=== PATIENT | female | born 1975 | race African-American/Black ===

== ENCOUNTER 2016-11-29 18:28 | Emergency (ER) | payer OTHER ==
[~2016-11-29] VITALS: Ht 165.1 cm; Wt 72.0 kg
[~2016-11-29 18:28] MED LIST: DILA100C PO; LEVE250 PO; TOPA100T8 PO
[2016-11-29 18:29] VITALS: BP 143/72; PULSE 78; RESP 14; TEMP 98.4; O2SAT 99
[2016-11-29] MEDS ORDERED: TOPA25TA8 PO (18:42)
[2016-11-29] MEDS ORDERED: LEVE10003 PO (18:42)
[2016-11-29] MEDS ORDERED: DILA100C PO (18:42)
--- NOTE | 2016-11-29 19:14 | RADRPT ---
EXAM DATE/TIME: 11/29/2016 18:58 [facility] COMPARISON: CHEST SINGLE AP, November 28, 2014, 20:30. INDICATIONS : Right side chest and breast pain. MEDICAL HISTORY : Stroke. Hypertension. Seizures. SURGICAL HISTORY : Tubal ligation. ENCOUNTER: Initial ACUITY: 3 days PAIN SCORE: 8/10 LOCATION: Bilateral chest FINDINGS: There is elevation of the right hemidiaphragm. Left lung is clear. Heart and pulmonary vascularity are normal. Portion of bony skeleton visualized is unremarkable. CONCLUSION: Negative chest for acute disease. Nathanael Beltre MD FACR on November 29, 2016 at 19:06 Board Certified Radiologist. This report was verified electronically.
[2016-11-29 19:16] LABS: AUTOMATED NEUTROPHIL # 2.8 TH/MM3 (1.8-7.7); BASOPHIL % 0.3 % (0.0-2.0); EOSINOPHIL % 0.6 % (0.0-4.0); HEMATOCRIT 40.1 % (35.0-46.0); HEMO FLAGS DIFF FINAL; LYMPH % 32.6 % (9.0-44.0); LYMPHOCYTE # 1.5 TH/MM3 (1.0-4.8); MEAN CELL VOLUME 78.9 FL (80.0-100.0); MEAN CORPUSCULAR HEMOGLOBIN 25.3 PG (27.0-34.0); MONO % 7.7 % (0.0-8.0); NEUT % 58.8 % (16.0-70.0); PLATELET COUNT 163 TH/MM3 (150-450); RED BLOOD COUNT 5.08 MIL/MM3 (4.00-5.30); WHITE BLOOD COUNT 4.7 TH/MM3 (4.0-11.0)
[2016-11-29 19:33] LABS: ANION GAP 9 MEQ/L (5-15); BICARBONATE 23.5 MEQ/L (21.0-32.0); BLOOD UREA NITROGEN 8 MG/DL (7-18); CHLORIDE 106 MEQ/L (98-107); GLOMERULAR FILTRATION RATE 117 ML/MIN (>89); POTASSIUM 3.9 MEQ/L (3.5-5.1); SODIUM (NA) 138 MEQ/L (136-145)
[2016-11-29 19:37] LABS: CREATINE KINASE 133 U/L (26-192)
[2016-11-29 19:50] LABS: CKMB 0.9 NG/ML (0.5-3.6)
[2016-11-29] MEDS ORDERED: IOHEXOL 350 MG/ML 10 ML VIAL (for RAD DIAG) IV ONE (20:09)
--- NOTE | 2016-11-29 20:22 | RADRPT ---
EXAM DATE/TIME: 11/29/2016 20:10 [facility] COMPARISON: CT PULMONARY ANGIOGRAM, October 22, 2012, 21:06. INDICATIONS : Right-sided chest pain for two days. IV CONTRAST: 74 cc Omnipaque 350 (iohexol) IV RADIATION DOSE: 23.24 CTDIvol (mGy) MEDICAL HISTORY : Stroke. Hypertension. sinus neoplasm SURGICAL HISTORY : Tubal ligation. sinus surgery ENCOUNTER: Initial ACUITY: 2 days PAIN SCALE: 8/10 LOCATION: Right chest TECHNIQUE: Volumetric scanning of the chest was performed using a pulmonary embolism protocol MIP images were reconstructed. Using automated exposure control and adjustment of the mA and/or kV acco rding to patient size, radiation dose was kept as low as reasonably achievable to obtain optimal diag nostic quality images. FINDINGS: There are minimal parenchymal changes laterally in the right lung, improved from the comparison study . There is no axillary adenopathy. There is no mediastinal adenopathy. There is no evidence for central pulmonary emboli. There is no pericardial effusion. Gallstones are present in the gallbladder. CONCLUSION: There is no evidence for central pulmonary emboli. Nathanael Beltre MD FACR on November 29, 2016 at 20:19 Board Certified Radiologist. This report was verified electronically.
[2016-11-29] MEDS ORDERED: ACETAMINOPHEN/HYDROcodone 325 MG/5 MG TAB PO ONE (20:30)
--- NOTE | 2016-11-29 20:30 | PD ---
HPI Chief Complaint: Chest Pain Time Seen by Provider: 20:26 Travel History International Travel<30 days: No Contact w/Intl Traveler<30days: No Traveled to known affect area: No History of Present Illness HPI 40-year-old female that presents to the ED for evaluation of right-sided chest pain. Per patient she's had this for the past 24 hours. Per patient taking deep breaths and moving makes it worse. Otherwise she has no discomfort is much. Per patient the pain is not severe but enough for her to be bothered. She does have a history of pulmonary embolism history of cancer in the past that she got concerned she wants to make sure this is nothing acute. She does tolerate she's been sneezing a lot as well as with some mild cough. She states that the pain is 6 out of 10. Denies any left-sided chest pain. Pain does not radiate. Denies any shortness of breath. No allergies to medication. Has not taken anything for this. Hasn't seen anybody for this. No recent travel. No recent surgeries. Takes no control. No allergies to medication. 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) Cerebrovascular Accident: Yes (seizure) Diminished Hearing: No Headaches: Yes Hypertension: Yes Implanted Vascular Access Dvce: No Musculoskeletal: Yes Neurologic: Yes Respiratory: Yes (PNA) Immunizations Current: Yes Migraines: Yes Radiation Therapy: Yes (SINUS) Seizures: Yes ?: Not LMP: 10/27/16 : 5 Para: 5 Tubal Ligation: Yes Past Surgical History Other Surgery: Yes (two sinus surgeries 2010/ radiation nasal poly) Family History Family Myocardial Infarction: No Social History Alcohol Use: No Tobacco Use: No Substance Use: No Allergies-Medications (Allergen,Severity, Reaction): Coded Allergies: No Known Allergies (Verified , 02/22/16) Reported Meds & Prescriptions Reported Meds & Active Scripts Active Reported Topamax (Topiramate) 25 Mg Tab 100 Mg PO BID Dilantin (Phenytoin Extended) 100 Mg Cap 100 Mg PO TID Levetiracetam 1,000 Mg Tab 1,000 Mg PO BID Review of Systems Except as stated in HPI: all other systems reviewed are Neg Physical Exam Narrative GENERAL: SKIN: Warm and dry. HEAD: Atraumatic. Normocephalic. EYES: Pupils equal and round. No scleral icterus. No injection or drainage. ENT: No nasal bleeding or discharge. Mucous membranes pink and moist. Tongue is midline. No uvula deviation. NECK: Trachea midline. No JVD. CARDIOVASCULAR: Regular rate and rhythm. No murmurs, S3, S4. Some of the pain in the right chest is reproducible with touch as well as with deep breaths. RESPIRATORY: No accessory muscle use. Clear to auscultation. Breath sounds equal bilaterally. GASTROINTESTINAL: Abdomen soft, non-tender, nondistended. Hepatic and splenic margins not palpable. MUSCULOSKELETAL: Extremities without clubbing, cyanosis, or edema. No obvious deformities. Full range of motion of the upper and lower extremities bilaterally. 2+ pulses bilaterally. NEUROLOGICAL: Awake and alert. No obvious cranial nerve deficits. Motor grossly within normal limits. Five out of 5 muscle strength in the arms and legs. Normal speech. PSYCHIATRIC: Appropriate mood and affect; insight and judgment normal. Data Data Last Documented VS Vital Signs Date Time Temp Pulse Resp B/P Pulse Ox O2 Delivery O2 Flow Rate FiO2 11/29/16 18:37 17 Room Air 11/29/16 18:29 98.4 78 143/72 99 Orders Electrocardiogram (11/29/16 ) Complete Blood Count With Diff (11/29/16 18:47) Basic Metabolic Panel (Bmp) (11/29/16 18:47) Ckmb (Isoenzyme) Profile (11/29/16 18:47) Troponin I (11/29/16 18:47) Chest, Single Ap (11/29/16 18:47) Ed Urine Pregnancytest Poc (11/29/16 18:47) D-Dimer (11/29/16 18:51) CKMB (11/29/16 18:55) CKMB% (11/29/16 18:55) Ct Pulmonary Angiogram (11/29/16 19:46) Iohexol 350 Inj (Omnipaque 350 Inj) (11/29/16 20:09) Acetamin-Hydrocod 325-5 Mg ([place] 5-325 (11/29/16 20:30) Labs Laboratory Tests Test 11/29/16 18:55 White Blood Count 4.7 TH/MM3 Red Blood Count 5.08 MIL/MM3 Hemoglobin 12.8 GM/DL Hematocrit 40.1 % Mean Corpuscular Volume 78.9 FL Mean Corpuscular Hemoglobin 25.3 PG Mean Corpuscular Hemoglobin 32.0 % Concent Red Cell Distribution Width 16.0 % Platelet Count 163 TH/MM3 Mean Platelet Volume 9.0 FL Neutrophils (%) (Auto) 58.8 % Lymphocytes (%) (Auto) 32.6 % Monocytes (%) (Auto) 7.7 % Eosinophils (%) (Auto) 0.6 % Basophils (%) (Auto) 0.3 % Neutrophils # (Auto) 2.8 TH/MM3 Lymphocytes # (Auto) 1.5 TH/MM3 Monocytes # (Auto) 0.4 TH/MM3 Eosinophils # (Auto) 0.0 TH/MM3 Basophils # (Auto) 0.0 TH/MM3 CBC Comment DIFF FINAL Differential Comment D-Dimer Quantitative (PE/DVT) 0.57 MG/L FEU Sodium Level 138 MEQ/L Potassium Level 3.9 MEQ/L Chloride Level 106 MEQ/L Carbon Dioxide Level 23.5 MEQ/L Anion Gap 9 MEQ/L Blood Urea Nitrogen 8 MG/DL Creatinine 0.67 MG/DL Estimat Glomerular Filtration 117 ML/MIN Rate Random Glucose 92 MG/DL Calcium Level 8.6 MG/DL Total Creatine Kinase 133 U/L Creatine Kinase MB 0.9 NG/ML Troponin I LESS THAN 0.02 NG/ML MDM Medical Decision Making Medical Screen Exam Complete: Yes Emergency Medical Condition: Yes Medical Record Reviewed: Yes Interpretation(s) CBC & BMP Diagram 11/29/16 18:55 EKG shows sinus rhythm with no sign of acute ischemia or arrhythmia read by me and attending. Troponin and CK-MB negative. D-dimer of 0.59 Chest x-ray for acute disease. CT negative for acute disease. Differential Diagnosis Chest pain versus PE versus pleurisy versus a typical chest pain Narrative Course 40-year-old female that presents to the ED for evaluation of right-sided chest pain. Patient was properly examined and was found to have signs and symptoms consistent with a typical chest pain. Patient does have a history of pulmonary embolism and cancer in the past. Case was discussed in my attending Dr Trivedi who recommends be done at least be ordered. Labs and imaging chem positive for d-dimer positive. CT was ordered. CT was negative. Patient was reassured. From history and physical this is likely pleurisy. Patient will be given a prescription for diclofenac sodium to use for pain. Told to take antihistamines related reaction. Follow with PCP. See ED worsening symptoms. Diagnosis Primary Impression: Pleurisy Patient Instructions: General Instructions, Narcotic given in the ED Additional Instructions: Take medications as prescribed. Follow with PCP. See ED for any worsening symptoms. You can take antihistamines to help with the allergies. Med/Other Pt SpecificInfo: Prescription(s) given Disposition: 01 DISCHARGE HOME Condition: Stable Rich Dalton November 29, 2016 20:30
[2016-11-29] MEDS ORDERED: DICL75TA PO (20:35)
--- NOTE | 2016-11-30 16:12 | EKG ---
Date Performed: 11/29/2016 Time Performed: 18:43:30 PTAGE: 40 years EKG: SINUS BRADYCARDIA WITH SINUS ARRHYTHMIA BORDERLINE LEFT AXIS DEVIATION VOLTAGE CRITERIA FOR LVH When compared to previous tracing, no significant change. ABNORMAL ECG PREVIOUS TRACING : 07/15/2015 00.15 DOCTOR: Adi German Interpretating Date/Time 11/30/2016 16:12:07
== END 2016-11-29 20:51 | disposition home or self-care (01) ==
LOC: NEPE 18:28
DX: R09.1 Pleurisy (principal); R05 Cough; R06.7 Sneezing; R94.31 Abnormal electrocardiogram [ECG] [EKG]; I10 Essential (primary) hypertension; Z87.39 Personal history of other diseases of the musculoskeletal system and connective tissue; Z86.79 Personal history of other diseases of the circulatory system; Z86.69 Personal history of other diseases of the nervous system and sense organs; Z86.711 Personal history of pulmonary embolism
CPT/HCPCS: 71010; 71275; 80048; 82550; 82552; 84484; 84703; 85025; 85379; 93005; 99285; Q9967

== ENCOUNTER 2017-01-16 08:23 | Emergency (ER) | payer OTHER ==
[~2017-01-16] VITALS: Ht 162.6 cm; Wt 69.1 kg
[~2017-01-16 08:23] MED LIST changes: +DICL75TA PO; +LEVE10003 PO; -LEVE250 PO; -TOPA100T8 PO; +TOPA25TA8 PO
[2017-01-16 08:26] VITALS: BP 173/87; PULSE 51; RESP 20; TEMP 97.7; O2SAT 100
[2017-01-16 09:00] VITALS: BP 142/70; PULSE 66; RESP 14; O2SAT 100
[2017-01-16] MEDS ORDERED: PROCHLORPERAZINE INJ 10 MG/2 ML VIAL IV PUSH ONE (09:00)
[2017-01-16] MEDS ORDERED: diphenhydrAMINE HCL 50 MG/ML VIAL IV PUSH ONE (09:00)
[2017-01-16] MEDS ORDERED: SODIUM CHLOR 0.9% 1000 ML INJ 1,000 ML IV ONE (09:00)
--- NOTE | 2017-01-16 09:35 | PD ---
HPI . "throwing up non-stop" Chief Complaint: GI Complaint Time Seen by Provider: 08:50 Travel History International Travel<30 days: No Contact w/Intl Traveler<30days: No Traveled to known affect area: No History of Present Illness HPI 41 year old female presents complaining of vomiting and abdominal pain. Onset was at 4 am. Reports that she has been vomiting non-stop since then. Associated abdominal pain in the epigastrium and RUQ. Describes the pain as constant and pressure like. Rates it as 8-9/10. She had a hamburger last night but no one else. Positive previous similar symptoms but not this severe. Admits to nausea. 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) Cerebrovascular Accident: Yes (seizure) Diminished Hearing: No Headaches: Yes Hypertension: Yes Implanted Vascular Access Dvce: No Musculoskeletal: Yes Neurologic: Yes Respiratory: Yes (PNA) Immunizations Current: Yes Migraines: Yes Radiation Therapy: Yes (SINUS) Seizures: Yes ?: Not LMP: DECEMBER 2016 : 5 Para: 5 Tubal Ligation: Yes Past Surgical History Other Surgery: Yes (two sinus surgeries 2010/ radiation nasal poly) Social History Alcohol Use: No Tobacco Use: Yes (<1/2 ppd) Substance Use: Yes (marijuana) Allergies-Medications (Allergen,Severity, Reaction): Coded Allergies: No Known Allergies (Verified , 01/16/17) Reported Meds & Prescriptions Reported Meds & Active Scripts Active Rapidan (Hydrocodone-Acetaminophen) 5-325 mg Tab 1 Tab PO Q6H PRN Phenergan (Promethazine HCl) 25 Mg Tablet 25 Mg PO Q6H PRN Review of Systems Except as stated in HPI: all other systems reviewed are Neg General / Constitutional: No: Fever, Chills Cardiovascular: No: Chest Pain or Discomfort, Tachycardia Respiratory: No: Cough, Shortness of Breath, Wheezing Gastrointestinal: Positive: Nausea, Vomiting, Abdominal Pain, No: Diarrhea Genitourinary: No: Dysuria Physical Exam Narrative GENERAL: Awake and alert, shakes her head from side to side repeatedly and moans. SKIN: Warm and dry. HEAD: Atraumatic. Normocephalic. EYES: Pupils equal and round. Extraocular eye movements are intact. ENT: No nasal bleeding or discharge. Mucous membranes pink and moist. NECK: Trachea midline. Neck supple. CARDIOVASCULAR: Regular rate and rhythm. No murmur. RESPIRATORY: No accessory muscle use. Lungs clear to auscultation bilaterally. GASTROINTESTINAL: Abdomen soft, non-tender, nondistended. Non-tender RUQ and epigastrium on deep palpation, negative Aviles's sign. MUSCULOSKELETAL: No obvious deformities. No edema. NEUROLOGICAL: Awake and alert. No obvious cranial nerve deficits. Motor grossly within normal limits. Normal speech. PSYCHIATRIC: Appropriate mood and affect; insight and judgment normal. Data Data Last Documented VS Vital Signs Date Time Temp Pulse Resp B/P Pulse Ox O2 Delivery O2 Flow Rate FiO2 01/16/17 11:00 60 14 150/84 100 Room Air 01/16/17 08:26 97.7 Orders Sodium Chlor 0.9% 1000 Ml Inj (Ns 1000 M (01/16/17 09:00) Prochlorperazine Inj (Compazine Inj) (01/16/17 09:00) Diphenhydramine Inj (Benadryl Inj) (01/16/17 09:00) Comprehensive Metabolic Panel (01/16/17 08:58) Lipase (01/16/17 08:58) Ed Urine Pregnancytest Poc (01/16/17 08:58) Us Abdomen Gallbladder (01/16/17 10:33) Complete Blood Count With Diff (01/16/17 10:33) Labs Laboratory Tests Test 01/16/17 01/16/17 08:47 09:19 White Blood Count 4.3 TH/MM3 Red Blood Count 5.37 MIL/MM3 Hemoglobin 13.8 GM/DL Hematocrit 42.1 % Mean Corpuscular Volume 78.5 FL Mean Corpuscular Hemoglobin 25.8 PG Mean Corpuscular Hemoglobin 32.8 % Concent Red Cell Distribution Width 15.5 % Platelet Count 199 TH/MM3 Mean Platelet Volume 9.5 FL Neutrophils (%) (Auto) 70.1 % Lymphocytes (%) (Auto) 23.8 % Monocytes (%) (Auto) 4.8 % Eosinophils (%) (Auto) 0.5 % Basophils (%) (Auto) 0.8 % Neutrophils # (Auto) 3.0 TH/MM3 Lymphocytes # (Auto) 1.0 TH/MM3 Monocytes # (Auto) 0.2 TH/MM3 Eosinophils # (Auto) 0.0 TH/MM3 Basophils # (Auto) 0.0 TH/MM3 CBC Comment DIFF FINAL Differential Comment Sodium Level 138 MEQ/L Potassium Level 4.0 MEQ/L Chloride Level 106 MEQ/L Carbon Dioxide Level 24.2 MEQ/L Anion Gap 8 MEQ/L Blood Urea Nitrogen 7 MG/DL Creatinine 0.83 MG/DL Estimat Glomerular Filtration 91 ML/MIN Rate Random Glucose 94 MG/DL Calcium Level 9.8 MG/DL Total Bilirubin 0.4 MG/DL Aspartate Amino Transf 24 U/L (AST/SGOT) Alanine Aminotransferase 22 U/L (ALT/SGPT) Alkaline Phosphatase 116 U/L Total Protein 8.1 GM/DL Albumin 3.9 GM/DL Lipase 199 U/L [facility] Medical Decision Making Medical Screen Exam Complete: Yes Emergency Medical Condition: Yes Medical Record Reviewed: Yes (Gall bladder ultrasound on 07/15/2015 showed gall bladder stones but normal common bile duct. ) Differential Diagnosis Differentials include gastroenteritis, gastritis, pancreatitis, hepatitis, cholecystitis, cholelithiasis, appendicitis, peptic ulcer. Narrative Course Patient presents with vomiting since 4 am with associated abdominal pain of the RUQ and epigastrium. Physical exam was unremarkable, abdomen was soft and non- tender throughout. Medical records show a previous gall bladder ultrasound from 2016 which showed stones however she had no point tenderness or fever so no radiographic studies were ordered at this time. CMP and lipase were ordered. CMP was unremarkable. Patient was given compazine, benadryl and IV fluids. Reports some improvement and no recent vomiting. BMP Diagram 01/16/17 09:19 CBC Diagram 01/16/17 08:47 Lipase came back at 199. At that time, RUQ ultrasound and CBC were ordered to assess for possible early gallstone pancreatitis. Last Impressions Gall Bladder Ultrasound 01/16/17 1033 Signed Impressions: Service Date/Time: Monday, January 16, 2017 10:53 - CONCLUSION: 1. There are numerous stones filling the gallbladder. No gallbladder wall thickening or pericholecystic fluid identified. Pramod Beltre MD RUQ ultrasound showed no stones in the common bile duct. Patient will be discharged home and referred to surgery. Diagnosis Primary Impression: Vomiting Qualified Code: R11.2 - Non-intractable vomiting with nausea, unspecified vomiting type Additional Impressions: Abdominal pain Qualified Code: R10.13 - Epigastric pain Gall stones Referrals: Ryan Morgan MD call for appointment Patient Instructions: Acute Nausea and Vomiting (ED), Biliary Colic (ED), General Instructions Med/Other Pt SpecificInfo: Prescription(s) given Scripts Hydrocodone-Acetaminophen (Rapidan)5-325 mg Tab1 Tab PO Q6H PRN (PAIN) #12 TAB Ref 0 Prov:Micheline Potter MD 01/16/17 Promethazine (Phenergan)25 Mg [id number] Mg PO Q6H PRN (NAUSEA OR VOMITING) #12 TAB Ref 0 Prov:Micheline Potter MD 01/16/17 Disposition: 01 DISCHARGE HOME Condition: Stable Micheline Potter MD Jan 16, 2017 09:35
[2017-01-16 09:59] LABS: ALT (GPT) 22 U/L (10-53)
[2017-01-16 10:00] VITALS: BP 157/83; PULSE 48; RESP 16; O2SAT 97
[2017-01-16 10:01] LABS: ALKALINE PHOSPHATASE 116 U/L (45-117); TOTAL BILIRUBIN ADULT 0.4 MG/DL (0.2-1.0)
[2017-01-16 10:10] LABS: ANION GAP 8 MEQ/L (5-15); AST (GOT) 24 U/L (15-37); BICARBONATE 24.2 MEQ/L (21.0-32.0); BLOOD UREA NITROGEN 7 MG/DL (7-18); CHLORIDE 106 MEQ/L (98-107); GLOMERULAR FILTRATION RATE 91 ML/MIN (>89); SODIUM (NA) 138 MEQ/L (136-145)
[2017-01-16 10:58] LABS: BASOPHIL % 0.8 % (0.0-2.0); EOSINOPHIL % 0.5 % (0.0-4.0); HEMATOCRIT 42.1 % (35.0-46.0); HEMO FLAGS DIFF FINAL; LYMPH % 23.8 % (9.0-44.0); MEAN CELL VOLUME 78.5 FL (80.0-100.0); MEAN CORPUSCULAR HEMOGLOBIN 25.8 PG (27.0-34.0); MEAN CORPUSCULAR HGB CONC 32.8 % (32.0-36.0); MONO % 4.8 % (0.0-8.0); NEUT % 70.1 % (16.0-70.0); PLATELET COUNT 199 TH/MM3 (150-450); RED BLOOD COUNT 5.37 MIL/MM3 (4.00-5.30); RED CELL DISTRIBUTION WIDTH 15.5 % (11.6-17.2); WHITE BLOOD COUNT 4.3 TH/MM3 (4.0-11.0)
[2017-01-16 11:00] VITALS: BP 150/84; PULSE 60; RESP 14; O2SAT 100
--- NOTE | 2017-01-16 12:07 | RADRPT ---
EXAM DATE/TIME: 01/16/2017 10:53 [facility] COMPARISON: US ABDOMEN - GALLBLADDER, July 15, 2015, 1:54. INDICATIONS : Nausea and vomiting with abdominal pain. MEDICAL HISTORY : Hypertension. CVA. Seizure. Radiation. SURGICAL HISTORY : Sinus surgery. ENCOUNTER: Subsequent ACUITY: 1 day PAIN SCORE: 4/10 LOCATION: Right upper quadrant MEASUREMENTS: LIVER: 18.0 cm length COMMON DUCT: 3 mm RIGHT KIDNEY: 11.1 x 7.0 x 4.4 cm FINDINGS: LIVER: Normal echotexture without focal lesion or ductal dilatation. COMMON DUCT: No intraluminal mass or stone visualized. GALLBLADDER: The examination demonstrates numerous stones filling the gallbladder. No gallbladder wall thickening or para cholecystic fluid is identified. PANCREAS: The visualized portions are within normal limits. RIGHT KIDNEY: No evidence of hydronephrosis, stone, or mass. CONCLUSION: 1. There are numerous stones filling the gallbladder. No gallbladder wall thickening or pericholecyst ic fluid identified. Pramod Beltre MD on January 16, 2017 at 12:04 Board Certified Radiologist. This report was verified electronically.
[2017-01-16] MEDS ORDERED: NORC5TAB PO (12:38)
[2017-01-16] MEDS ORDERED: PROM25TA10 PO (12:38)
== END 2017-01-16 13:03 | disposition home or self-care (01) ==
LOC: NEPC 08:23
DX: R11.2 Nausea with vomiting, unspecified (principal); R10.13 Epigastric pain; K80.20 Calculus of gallbladder without cholecystitis without obstruction; I10 Essential (primary) hypertension; F17.210 Nicotine dependence, cigarettes, uncomplicated; F12.90 Cannabis use, unspecified, uncomplicated
CPT/HCPCS: 76705; 80053; 83690; 84703; 85025; 96361; 96374; 96375; 99285; J0780; J1200; J7030

== ENCOUNTER 2017-03-30 04:30 | Emergency (ER) | payer SELFPAY ==
[~2017-03-30] VITALS: Ht 162.6 cm; Wt 69.0 kg
[~2017-03-30 04:30] MED LIST changes: -DICL75TA PO; -DILA100C PO; -LEVE10003 PO; +NORC5TAB PO; +PROM25TA10 PO; -TOPA25TA8 PO
[2017-03-30 04:31] VITALS: BP 138/88; PULSE 69; RESP 16; TEMP 97.8; O2SAT 98
[2017-03-30 05:38] VITALS: RESP 16; O2SAT 98
--- NOTE | 2017-03-30 05:44 | PD ---
HPI Chief Complaint: Chest Pain Time Seen by Provider: 05:07 Travel History International Travel<30 days: No Contact w/Intl Traveler<30days: No Traveled to known affect area: No History of Present Illness HPI 41-year-old female complains of right arm pain, right arm tingling sensation and burning of the right-sided body and heart racing. Patient states that the symptoms started earlier this morning. Patient states that she was watching TV when that happened. Patient has history of seizure in the past. 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 Patient states that she developed seizure subsequently. Patient was admitted to [facility] in 2013. Patient had full workup including CT, MRI and neurology consultation. Patient was seen by neurologist outside the area and was diagnosed with seizure. Patient was put on Keppra, Dilantin and Topamax. Patient states that she stopped taking the Medications since 2012. Patient denies any routine daily medication. Patient denies any chance of being . Patient denies any headache. Patient denies any visual change. Patient denies any neck pain. Patient denies any states that she has right-sided chest wall pain. Patient states that she feels tingling in her throat. Patient denies abdominal pain. Patient denies any nausea vomiting diarrhea. 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) Cerebrovascular Accident: Yes (seizure) Diminished Hearing: No Genitourinary: No Headaches: Yes Hypertension: Yes Implanted Vascular Access Dvce: No Musculoskeletal: Yes Neurologic: Yes Respiratory: Yes (PNA) Immunizations Current: Yes Migraines: Yes Radiation Therapy: Yes (SINUS) Seizures: Yes ?: Not : 5 Para: 5 Tubal Ligation: Yes Past Surgical History Thoracic Surgery: No Other Surgery: Yes (two sinus surgeries 2010/ radiation nasal poly) Social History Alcohol Use: No Tobacco Use: Yes (<1/2 ppd) Substance Use: Yes (marijuana) Allergies-Medications (Allergen,Severity, Reaction): Coded Allergies: No Known Allergies (Verified , 03/30/17) Reported Meds & Prescriptions Reported Meds & Active Scripts Active No Active Prescriptions or Reported Medications Review of Systems General / Constitutional: No: Fever Eyes: No: Visual changes HENT: No: Headaches Cardiovascular: No: Chest Pain or Discomfort Respiratory: No: Shortness of Breath Gastrointestinal: No: Abdominal Pain Genitourinary: No: Dysuria Musculoskeletal: No: Pain Skin: No Rash Neurologic: No: Weakness Psychiatric: No: Depression Endocrine: No: Polydipsia Hematologic/Lymphatic: No: Easy Bruising Physical Exam Narrative GENERAL: Well-nourished, well-developed patient. SKIN: Focused skin assessment warm/dry. HEAD: Normocephalic. EYES: No scleral icterus. No injection or drainage. Pupils 3 mm equal reactive. NECK: Supple, trachea midline. No JVD or lymphadenopathy. CARDIOVASCULAR: Regular rate and rhythm without murmurs, gallops, or rubs. RESPIRATORY: Breath sounds equal bilaterally. No accessory muscle use. GASTROINTESTINAL: Abdomen soft, non-tender, nondistended. MUSCULOSKELETAL: No cyanosis, or edema. BACK: Nontender without obvious deformity. No CVA tenderness. Neurologic exam normal. Data Data Last Documented VS Vital Signs Date Time Temp Pulse Resp B/P (MAP) Pulse Ox O2 Delivery O2 Flow Rate FiO2 03/30/17 05:38 16 98 Room Air 03/30/17 04:31 97.8 69 Orders Orders Electrocardiogram (03/30/17 05:34) Complete Blood Count With Diff (03/30/17 05:34) Iv Access Insert/Monitor (03/30/17 05:34) Ecg Monitoring (03/30/17 05:34) Oximetry (03/30/17 05:34) Creatine Kinase (Cpk) (03/30/17 05:36) Troponin I (03/30/17 05:36) Basic Metabolic Panel (Bmp) (03/30/17 05:36) Labs Laboratory Tests Test 03/30/17 05:55 White Blood Count 4.6 TH/MM3 Red Blood Count 4.72 MIL/MM3 Hemoglobin 12.3 GM/DL Hematocrit 37.8 % Mean Corpuscular Volume 80.1 FL Mean Corpuscular Hemoglobin 26.1 PG Mean Corpuscular Hemoglobin Concent 32.6 % Red Cell Distribution Width 15.7 % Platelet Count 189 TH/MM3 Mean Platelet Volume 8.9 FL Neutrophils (%) (Auto) 57.4 % Lymphocytes (%) (Auto) 34.4 % Monocytes (%) (Auto) 6.6 % Eosinophils (%) (Auto) 1.0 % Basophils (%) (Auto) 0.6 % Neutrophils # (Auto) 2.6 TH/MM3 Lymphocytes # (Auto) 1.6 TH/MM3 Monocytes # (Auto) 0.3 TH/MM3 Eosinophils # (Auto) 0.0 TH/MM3 Basophils # (Auto) 0.0 TH/MM3 CBC Comment DIFF FINAL Differential Comment Blood Urea Nitrogen 9 MG/DL Creatinine 0.78 MG/DL Random Glucose 94 MG/DL Calcium Level 8.4 MG/DL Sodium Level 139 MEQ/L Potassium Level 3.6 MEQ/L Chloride Level 106 MEQ/L Carbon Dioxide Level 26.5 MEQ/L Anion Gap 7 MEQ/L Estimat Glomerular Filtration Rate 98 ML/MIN Total Creatine Kinase 105 U/L Troponin I LESS THAN 0.02 NG/ML MDM Medical Decision Making Medical Screen Exam Complete: Yes Emergency Medical Condition: Yes Interpretation(s) EKG show sinus bradycardia rate 55. Nonspecific ST-T wave change. CBC within normal limit. BMP within normal limit. Cardiac enzymes are normal. Differential Diagnosis Differential diagnosis including neuralgia, neuropathy, TIA, CVA, electrolyte imbalance, thyroid disease. Narrative Course 41-year-old female with pain and tingling sensation of the right arm and burning sensation right side of body and heart racing. History of seizure in the past. Diagnosis Primary Impression: Neuralgia Patient Instructions: General Instructions Additional Instructions: Vistaril as needed. Follow-up with personal physician. Return if worse. Med/Other Pt SpecificInfo: Prescription(s) given Scripts Hydroxyzine Pamoate (Vistaril) 25 Mg Cap 25 MG PO TID Y for ANXIETY, #21 CAP 0 Refills Prov: Babatunde Subramanian MD 03/30/17 Disposition: 01 DISCHARGE HOME Condition: Stable Babatunde Subramanian MD Mar 30, 2017 05:44
[2017-03-30 06:04] LABS: AUTOMATED NEUTROPHIL # 2.6 TH/MM3 (1.8-7.7); BASOPHIL % 0.6 % (0.0-2.0); HEMATOCRIT 37.8 % (35.0-46.0); HEMO FLAGS DIFF FINAL; LYMPH % 34.4 % (9.0-44.0); LYMPHOCYTE # 1.6 TH/MM3 (1.0-4.8); MEAN CELL VOLUME 80.1 FL (80.0-100.0); MEAN CORPUSCULAR HEMOGLOBIN 26.1 PG (27.0-34.0); MEAN CORPUSCULAR HGB CONC 32.6 % (32.0-36.0); MONO % 6.6 % (0.0-8.0); NEUT % 57.4 % (16.0-70.0); PLATELET COUNT 189 TH/MM3 (150-450); RED BLOOD COUNT 4.72 MIL/MM3 (4.00-5.30); RED CELL DISTRIBUTION WIDTH 15.7 % (11.6-17.2); WHITE BLOOD COUNT 4.6 TH/MM3 (4.0-11.0)
[2017-03-30 06:22] LABS: ANION GAP 7 MEQ/L (5-15); BICARBONATE 26.5 MEQ/L (21.0-32.0); BLOOD UREA NITROGEN 9 MG/DL (7-18); CHLORIDE 106 MEQ/L (98-107); GLOMERULAR FILTRATION RATE 98 ML/MIN (>89); POTASSIUM 3.6 MEQ/L (3.5-5.1); SODIUM (NA) 139 MEQ/L (136-145)
[2017-03-30 06:27] LABS: CREATINE KINASE 105 U/L (26-192)
[2017-03-30] MEDS ORDERED: VIST25CA PO (06:45)
--- NOTE | 2017-03-30 13:57 | EKG ---
Date Performed: 03/30/2017 Time Performed: 04:48:18 PTAGE: 41 years EKG: SINUS BRADYCARDIA BORDERLINE LEFT AXIS DEVIATION VOLTAGE CRITERIA FOR LVH NONSPECIFIC T-WAV E ABNORMALITY ABNORMAL ECG Compared to prior tracing no significant change PREVIOUS TRACING : 11/29/2016 18.43 DOCTOR: Kelvin Patel Interpretating Date/Time 03/30/2017 13:55:21
== END 2017-03-30 07:14 | disposition home or self-care (01) ==
LOC: NEPC 04:30
DX: M79.2 Neuralgia and neuritis, unspecified (principal); F17.200 Nicotine dependence, unspecified, uncomplicated
CPT/HCPCS: 80048; 82550; 84484; 85025; 93005; 99284

== ENCOUNTER 2017-06-21 09:35 | Emergency (ER) | payer SELFPAY ==
[~2017-06-21] VITALS: Ht 165.1 cm; Wt 72.0 kg
[~2017-06-21 09:35] MED LIST changes: -NORC5TAB PO; -PROM25TA10 PO; +VIST25CA PO
[2017-06-21 09:36] VITALS: BP 129/76; PULSE 78; RESP 16; TEMP 97.6; O2SAT 98
--- NOTE | 2017-06-21 10:30 | PD ---
HPI Chief Complaint: Skin Problem Time Seen by Provider: 10:16 Travel History International Travel<30 days: No Contact w/Intl Traveler<30days: No Traveled to known affect area: No History of Present Illness HPI 41 YO F presents to the ED for evaluation of 2 week history of redness, throbbing pain of the nail of the right ring finger. Gradual onset. Patient can identify no acute injury. She states that she's been able to push pus out of the wound multiple times. She states that she's been treating with warm salt water soaks with only moderate improvement of symptoms. She denies fever, chills, numbness, tingling, weakness, limitation of range of motion of the upper extremity. She denies biting her nails. She's never had an issue like this in the past. 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) Cerebrovascular Accident: Yes (seizure) Diminished Hearing: No Genitourinary: No Headaches: Yes Hypertension: Yes Implanted Vascular Access Dvce: No Musculoskeletal: Yes Neurologic: Yes Respiratory: Yes (PNA) Immunizations Current: Yes Migraines: Yes Radiation Therapy: Yes (SINUS) Seizures: Yes ?: Not LMP: 06/02/17 : 5 Para: 5 Tubal Ligation: Yes Past Surgical History Thoracic Surgery: No Other Surgery: Yes (two sinus surgeries 2010/ radiation nasal poly) Family History Family Myocardial Infarction: No Social History Alcohol Use: No Tobacco Use: Yes (<1/2 ppd) Substance Use: Yes (marijuana) Allergies-Medications (Allergen,Severity, Reaction): Coded Allergies: No Known Allergies (Verified Adverse Reaction, Unknown, 06/21/17) Reported Meds & Prescriptions Reported Meds & Active Scripts Active Ibuprofen 600 Mg Tab 600 Mg PO Q8H PRN Bactrim DS (Sulfamethoxazole-Trimethoprim) 800-160 Mg Tab 1 Tab PO BID Mupirocin Topical (Mupirocin) 2 % Oint 1 Applic TOPICAL BID 10 Days Review of Systems Except as stated in HPI: all other systems reviewed are Neg Physical Exam Narrative GENERAL: Well-nourished, well-developed black female in no acute distress. SKIN: Focused skin assessment warm/dry. HEAD: Normocephalic. EYES: No scleral icterus. No injection or drainage. NECK: Supple, trachea midline. No JVD or lymphadenopathy. CARDIOVASCULAR: Regular rate and rhythm without murmurs, gallops, or rubs. RESPIRATORY: Breath sounds equal bilaterally. No accessory muscle use. GASTROINTESTINAL: Abdomen soft, non-tender, nondistended. MUSCULOSKELETAL: No cyanosis, or edema. FOCUSED RIGHT UPPER EXTREMITY EXAM: 2+ radial pulse. Patient retains full, active, painless ROM of the extremity. SKIN: There is an indurated area in the Roxanol and lateral edge of the ring finger of the right hand which measures about 0.25 cm in diameter. It is fluctuant but there is no pointing or drainage. There is a zone of inflammation around it but no lymphangitis. Sensation intact to light touch distally. Cap refill less than 2 seconds BACK: Nontender without obvious deformity. No CVA tenderness. Data Data Last Documented VS Vital Signs Date Time Temp Pulse Resp B/P (MAP) Pulse Ox O2 Delivery O2 Flow Rate FiO2 06/21/17 09:36 97.6 78 16 129/76 (93) 98 Orders Orders Lidocaine 1% Inj (50 Ml) (Xylocaine 1% I (06/21/17 10:45) Ibuprofen (Motrin) (06/21/17 10:45) Abscess Culture And Gram Stain (06/21/17 10:33) Ed Discharge Order (06/21/17 11:28) MDM Medical Decision Making Medical Screen Exam Complete: Yes Emergency Medical Condition: Yes Differential Diagnosis Paronychia versus herpetic armen versus felon versus abscess versus other Narrative Course 41-year-old female presents to the ED for evaluation of 2 week history of pain, swelling, pus emanating from the nailbed around the fourth digit of the right hand. Vitals reviewed. Exam consistent with paronychia with abscess. I&D was performed. Please see my procedure note for details. Patient's prescribed Bactroban ointment, frequent soaks, Bactrim DS twice a day 7 days. We discussed reasons to return to the ED. She indicated understanding of the instructions. She is stable and discharged home. Procedures Procedure Narrative INCISION AND DRAINAGE OF ABSCESS: The area was prepped and was sterilely draped. A digital block was performed with 1% lidocaine. Total number of 3 mL was used to anesthetize the area properly. A number 11 scalpel was used to make a small incision across the area of the abscess. The abscess was drained and irrigated with normal saline. Cultures were obtained. Sterile dressing was applied. She tolerated the procedure well. Diagnosis Primary Impression: Paronychia of right ring finger Referrals: Primary Care Physician Patient Instructions: General Instructions, Paronychia (ED) Additional Instructions: Soak the finger a few times a day in warm water. Apply Bactroban ointment after soaks. Take antibiotics as prescribed. Take antibiotics to wound every pill is gone, even if symptoms resolve. Take ibuprofen every 8 hours as needed for pain. Follow-up with the primary care provider. Return to the ED for any urgent or emergent medical condition. Med/Other Pt SpecificInfo: Prescription(s) given Scripts Ibuprofen (Ibuprofen) 600 Mg Tab 600 MG PO Q8H Y for PAIN, #15 TAB 0 Refills Prov: Babatunde Subramanian MD 06/21/17 Sulfamethoxazole-Trimethoprim (Bactrim DS) 800-160 Mg Tab 1 TAB PO BID for Infection, #14 TAB 0 Refills Prov: Babatunde Subramanian MD 06/21/17 Mupirocin Topical (Mupirocin Topical) 2 % Oint 1 APPLIC TOPICAL BID for Mgmt Bacterial Infection for 10 Days, #1 TUBE 0 Refills Prov: Babatunde Subramanian MD 06/21/17 Disposition: 01 DISCHARGE HOME Condition: Stable Monika Cornelius Jun 21, 2017 10:30
[2017-06-21] MEDS ORDERED: IBUPROFEN 800 MG TAB PO ONE (10:45)
[2017-06-21] MEDS ORDERED: LIDOCAINE HCL 1% 50 ML VIAL INFIL ONE (10:45)
[2017-06-21] MEDS ORDERED: MUPI2OIN TOPICAL (11:12)
[2017-06-21] MEDS ORDERED: BACT800T5 PO (11:12)
[2017-06-21] MEDS ORDERED: IBUP-232 PO (11:16)
== END 2017-06-21 11:50 | disposition home or self-care (01) ==
LOC: NEPD 09:35
DX: L03.011 Cellulitis of right finger (principal); F41.9 Anxiety disorder, unspecified; R56.9 Unspecified convulsions; I10 Essential (primary) hypertension; F17.200 Nicotine dependence, unspecified, uncomplicated; Z86.73 Personal history of transient ischemic attack (TIA), and cerebral infarction without residual deficits
CPT/HCPCS: 10060; 86403; 87070; 87077; 87186; 87205

== ENCOUNTER 2017-08-13 11:00 | Emergency (ER) | payer SELFPAY ==
[~2017-08-13] VITALS: Ht 162.6 cm; Wt 70.0 kg
[~2017-08-13 11:00] MED LIST changes: +BACT800T5 PO; +IBUP-232 PO; +MUPI2OIN TOPICAL; -VIST25CA PO
[2017-08-13 11:02] VITALS: BP 130/79; PULSE 66; RESP 12; TEMP 98.2; O2SAT 100
--- NOTE | 2017-08-13 11:34 | PD ---
HPI Chief Complaint: Pain: Acute or Chronic Time Seen by Provider: 11:27 Travel History International Travel<30 days: No Contact w/Intl Traveler<30days: No Traveled to known affect area: No History of Present Illness HPI 41-year-old female presents to the emergency department for evaluation of left knee pain that started 2-3 days ago without injury. She states is worse with movement and ambulation. It is better with rest and ibuprofen. She denies any fevers or chills. No warmth or erythema. No swelling. Patient reports no medical problems and takes no prescribed medications. She denies any other symptoms or complaints at this time. Mild severity. 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) Cerebrovascular Accident: Yes (seizure) Diminished Hearing: No Genitourinary: No Headaches: Yes Hypertension: Yes Implanted Vascular Access Dvce: No Musculoskeletal: Yes Neurologic: Yes Respiratory: Yes (PNA) Immunizations Current: Yes Migraines: Yes Radiation Therapy: Yes (SINUS) Seizures: Yes ?: Not LMP: 07/28/17 : 5 Para: 5 Tubal Ligation: Yes Past Surgical History Thoracic Surgery: No Other Surgery: Yes (two sinus surgeries 2010/ radiation nasal poly) Social History Alcohol Use: No Tobacco Use: Yes (<1/2 ppd) Substance Use: Yes (marijuana) Allergies-Medications (Allergen,Severity, Reaction): Coded Allergies: No Known Allergies (Verified Adverse Reaction, Unknown, 06/21/17) Reported Meds & Prescriptions Reported Meds & Active Scripts Active Ibuprofen 600 Mg Tab 600 Mg PO Q8H PRN Bactrim DS (Sulfamethoxazole-Trimethoprim) 800-160 Mg Tab 1 Tab PO BID Mupirocin Topical (Mupirocin) 2 % Oint 1 Applic TOPICAL BID 10 Days Review of Systems Except as stated in HPI: all other systems reviewed are Neg Physical Exam Narrative GENERAL: Well-nourished, well-developed female patient, ambulatory. Afebrile. SKIN: Focused skin assessment warm/dry. No erythema or warmth over left knee. HEAD: Normocephalic. Atraumatic. EYES: No scleral icterus. No injection or drainage. NECK: Supple, trachea midline. No JVD or lymphadenopathy. CARDIOVASCULAR: Regular rate and rhythm without murmurs, gallops, or rubs. RESPIRATORY: Breath sounds equal bilaterally. No accessory muscle use. Lungs sounds are clear to auscultation. MUSCULOSKELETAL: No cyanosis, or edema. No reproducible tenderness over left knee. She has full flexion-extension without pain or stiffness. BACK: Nontender without obvious deformity. No CVA tenderness. Data Data Last Documented VS Vital Signs Date Time Temp Pulse Resp B/P (MAP) Pulse Ox O2 Delivery O2 Flow Rate FiO2 08/13/17 11:02 98.2 66 12 130/79 (96) 100 Orders Orders Splint Or Brace Apply/Monitor (08/13/17 11:34) MDM Medical Decision Making Medical Screen Exam Complete: Yes Emergency Medical Condition: Yes Medical Record Reviewed: Yes Differential Diagnosis Knee sprain versus arthritis versus unlikely fracture Narrative Course 41-year-old female presents to the emergency department for evaluation of left knee pain without injury. She appears well on exam. No evidence of acute bony injury on exam. Patient is instructed ice, elevate, Hector bandage as needed, ibuprofen for pain. She verbalizes agreement and understanding. The patient was discharged in stable condition with instructions, including return instructions and follow up instructions. Diagnosis Primary Impression: Left knee sprain Qualified Codes: S83.92XA - Sprain of unspecified site of left knee, initial encounter Referrals: Primary Care Physician call for appointment Patient Instructions: General Instructions, Knee Sprain (ED) Departure Forms: Tests/Procedures, Work Release Enter return to work date: Aug 15, 2017 Additional Instructions: Wear Hector bandage as needed for support. Take ibuprofen as directed as needed with food for pain. Elevate. Ice for 20 minutes 4-5 times daily. Follow-up with your primary care physician. Return to the emergency department for any acute worsening of symptoms. Med/Other Pt SpecificInfo: Prescription(s) given Scripts Ibuprofen (Ibuprofen) 600 Mg Tab 600 MG PO Q8H Y for PAIN, #21 TAB 0 Refills Prov: Mariya Perkins 08/13/17 Disposition: 01 DISCHARGE HOME Condition: Stable Mariya Perkins Aug 13, 2017 11:34
[2017-08-13] MEDS ORDERED: IBUP-232 PO (11:37)
== END 2017-08-13 12:14 | disposition home or self-care (01) ==
LOC: NEPK 11:00
DX: S83.92XA Sprain of unspecified site of left knee, initial encounter (principal); X58.XXXA Exposure to other specified factors, initial encounter
CPT/HCPCS: 99283